=== PATIENT | female | born 1960 | race Caucasian/White ===

== ENCOUNTER 2020-11-10 17:37 | Emergency (ER) | payer BC ==
[~2020-11-10] VITALS: Wt 66.7 kg
== END 2020-11-10 19:09 | disposition home or self-care (01) ==
LOC: ED 17:37
DX: S61.511A Laceration without foreign body of right wrist, initial encounter (principal); S60.221A Contusion of right hand, initial encounter; S50.11XA Contusion of right forearm, initial encounter; Z88.2 Allergy status to sulfonamides; Z98.51 Tubal ligation status; W01.198A Fall on same level from slipping, tripping and stumbling with subsequent striking against other object, initial encounter; Y93.89 Activity, other specified; Y92.89 Other specified places as the place of occurrence of the external cause; Y99.8 Other external cause status